=== PATIENT | male | born 1955 | race Caucasian/White ===

== ENCOUNTER 2017-10-18 11:42 | Emergency (ER) | payer OTHER | END 2017-10-18 12:35 | disposition home or self-care (01) | LOC: M ED 11:42 | DX: S46.211A Strain of muscle, fascia and tendon of other parts of biceps, right arm, initial encounter (principal); X50.0XXA Overexertion from strenuous movement or load, initial encounter; Y92.89 Other specified places as the place of occurrence of the external cause; F17.210 Nicotine dependence, cigarettes, uncomplicated | CPT/HCPCS: 99282 ==

== ENCOUNTER 2023-12-06 22:55 | Observation (INO) | payer MEDICARE, OTHER ==
[~2023-12-06] VITALS: Ht 182.9 cm; Wt 93.2 kg
[2023-12-06 23:21] LABS: BASO # 0.1 10^3/uL (0.0-0.2); BASO % 0.4 % (0.0-1.0); EOS # 0.5 10^3/uL (0.0-0.5); LYMPH # 5.1 10^3/uL (1.5-5.0); LYMPH % 41.4 % (24.0-44.0); MEAN CORPUSCULAR HEMOGLOBIN 31.3 pg (27.0-33.0); MEAN CORPUSCULAR VOLUME 92.1 fl (80.0-96.0); NEUTROPHILS # 5.7 10^3/uL (1.5-8.5); NEUTROPHILS % 45.9 % (36.0-66.0); PLATELET COUNT, AUTOMATED 209 10^3/uL (150-450); RED BLOOD COUNT 5.43 10^6/uL (4.30-6.10); WHITE BLOOD COUNT 12.4 10^3/uL (4.0-10.0)
[2023-12-06] MEDS: METOPROLOL 5 MG/5 ML VIAL IV SCH (23:27)
[2023-12-06 23:44] LABS: INR 0.94; PROTHROMBIN TIME 12.3 SECONDS (12.5-14.5)
[2023-12-06 23:45] LABS: LIPASE 49 U/L (12-53)
[2023-12-06 23:48] LABS: ALBUMIN 4.1 G/DL (3.2-5.2); ALKALINE PHOSPHATASE 110 U/L (46-116); ALT/SGPT 21 U/L (7.0-40); AST/SGOT 18 U/L (<34); BILIRUBIN,DIRECT < 0.1 MG/DL (<0.4); BILIRUBIN,TOTAL 0.3 MG/DL (0.3-1.2); BLOOD UREA NITROGEN 20 MG/DL (9-23); CALCIUM LEVEL 10.2 MG/DL (8.3-10.6); CARBON DIOXIDE LEVEL 30 MMOL/L (20-31); CHLORIDE LEVEL 107 MMOL/L (98-107); CK-MB VALUE MASS 1.3 NG/ML (<3.6); CPK CREATINE PHOSPHOKINASE 87 U/L (46-171); CREATININE FOR GFR 1.31 MG/DL (0.70-1.30); GLOMERULAR FILTRATION RATE 58.3 (>49); GLUCOSE, FASTING 112 MG/DL (74-106); MB/CK RELATIVE INDEX 1.49 (< OR =4); POTASSIUM SERUM 3.6 MMOL/L (3.5-5.1); SODIUM LEVEL 141 MMOL/L (136-145); TOTAL PROTEIN 7.1 G/DL (5.7-8.2)
[2023-12-07 00:11] VITALS: BP 170/86
[2023-12-07] MEDS: atenoloL 25 MG TAB PO ONE (00:11)
[2023-12-07 00:50] LABS: MB/CK RELATIVE INDEX 3.88 (< OR =4)
[2023-12-07] MEDS ORDERED: BIOT1000 PO (03:27)
[2023-12-07] MEDS ORDERED: D 10CAP PO (03:27)
[2023-12-07] MEDS ORDERED: [UNRECOGNIZED DRUG - CODE] SL (03:27)
[2023-12-07] MEDS ORDERED: OMEG10005 PO (03:27)
[2023-12-07] MEDS ORDERED: ONE1TAB2 PO (03:27)
[2023-12-07] MEDS ORDERED: GNP250TA9 PO (03:27)
[2023-12-07] MEDS ORDERED: HOME MED LIST COMPLETE! XX SCH (03:30)
[2023-12-07] MEDS ORDERED: MOM 30ML SUSPENSION UDC PO PRN (04:35)
[2023-12-07] MEDS ORDERED: MAALOX 30 ML SUSP *UDC PO PRN (04:35)
[2023-12-07] MEDS: LR 1,000 ML IV ONE (05:26)
[2023-12-07 06:55] LABS: HEMATOCRIT 48.5 % (42.0-52.0); HEMOGLOBIN 16.1 g/dl (13.5-17.5); MEAN CORPUSCULAR HEMOGLOBIN 30.6 pg (27.0-33.0); MEAN CORPUSCULAR HGB CONC 33.2 g/dl (32.0-36.5); PLATELET COUNT, AUTOMATED 209 10^3/uL (150-450); RED BLOOD COUNT 5.27 10^6/uL (4.30-6.10); WHITE BLOOD COUNT 11.2 10^3/uL (4.0-10.0)
[2023-12-07] MEDS: NICOTINE POLACRILEX 2 MG GUM PO PRN (07:26)
[2023-12-07 07:27] LABS: ALBUMIN 3.6 G/DL (3.2-5.2); ALKALINE PHOSPHATASE 91 U/L (46-116); ALT/SGPT 26 U/L (7.0-40); AST/SGOT 82 U/L (<34); BILIRUBIN,TOTAL 0.3 MG/DL (0.3-1.2); BLOOD UREA NITROGEN 19 MG/DL (9-23); CALCIUM LEVEL 10.4 MG/DL (8.3-10.6); CARBON DIOXIDE LEVEL 26 MMOL/L (20-31); CHLORIDE LEVEL 111 MMOL/L (98-107); CHOLESTEROL LEVEL 183 MG/DL (<200); CHOLESTEROL RISK RATIO 7.62 (<5); CREATININE FOR GFR 1.16 MG/DL (0.70-1.30); GLOMERULAR FILTRATION RATE > 60.0 (>49); GLUCOSE, FASTING 108 MG/DL (74-106); MAGNESIUM LEVEL 2.2 MG/DL (1.8-2.4); POTASSIUM SERUM 4.2 MMOL/L (3.5-5.1); SODIUM LEVEL 142 MMOL/L (136-145); TOTAL PROTEIN 6.4 G/DL (5.7-8.2); TRIGLYCERIDES LEVEL 240 MG/DL (<150)
[2023-12-07] MEDS ORDERED: ENOXAPARIN 40MG/0.4ML SYRINGE (J1650 PER 10MG) SC SCH (09:00)
[2023-12-07 09:28] LABS: HEMOGLOBIN 16.1 g/dl (13.5-17.5); MEAN CORPUSCULAR HEMOGLOBIN 30.5 pg (27.0-33.0); MEAN CORPUSCULAR HGB CONC 32.9 g/dl (32.0-36.5); MEAN CORPUSCULAR VOLUME 92.8 fl (80.0-96.0); PLATELET COUNT, AUTOMATED 202 10^3/uL (150-450); RED BLOOD COUNT 5.28 10^6/uL (4.30-6.10); WHITE BLOOD COUNT 11.9 10^3/uL (4.0-10.0)
[2023-12-07] MEDS: HEPARIN DRIP 25,000 UNITS in IV 1 EA IV SCH (09:33)
[2023-12-07] MEDS: HEPARIN SOD (PORCINE) 5000UNITS/ML 1ML VIAL/SYRINGE IV PRN (09:34)
[2023-12-07] MEDS: ACETAMINOPHEN 325 MG TAB PO PRN (09:35)
[2023-12-07] MEDS: HEPARIN SOD (PORCINE) 5000UNITS/ML 1ML VIAL/SYRINGE IV ONE (09:44)
[2023-12-07 09:45] LABS: HEMOGLOBIN A1c 5.5 % (4.0-6.0)
[2023-12-07] MEDS: ASPIRIN 325 MG TAB PO ONE (10:10)
[2023-12-07 11:34] VITALS: BP 156/78; TEMP 98.2; O2SAT 96
== END 2023-12-07 11:36 | disposition short-term general hospital (02) ==
LOC: M ED 22:55 → M ED INP 22:56
PROVIDERS: ADMIT Internal Medicine; ATTEND Internal Medicine
DX: I20.0 Unstable angina (principal); I21.4 Non-ST elevation (NSTEMI) myocardial infarction; R79.89 Other specified abnormal findings of blood chemistry; I25.5 Ischemic cardiomyopathy; I51.81 Takotsubo syndrome; F17.218 Nicotine dependence, cigarettes, with other nicotine-induced disorders; F32.A Depression, unspecified; Z79.899 Other long term (current) drug therapy
CPT/HCPCS: 36415; 71045; 80048; 80053; 80061; 80076; 82550; 82553; 83036; 83690; 83735; 84484; 85025; 85027; 85610; 85730; 93005; 93041; 93306; 96365; 96366; 96375; 96376; 99285; G0378

== ENCOUNTER 2023-12-22 05:06 | Emergency (ER) | payer MEDICARE, OTHER ==
[~2023-12-22] VITALS: Ht 182.9 cm; Wt 94.7 kg
[~2023-12-22 05:06] MED LIST: BIOT1000 PO; D 10CAP PO; GNP250TA9 PO; OMEG10005 PO; ONE1TAB2 PO; [UNRECOGNIZED DRUG - CODE] SL
[2023-12-22 05:58] LABS: BASO % 0.4 % (0.0-1.0); EOS # 0.2 10^3/uL (0.0-0.5); EOS % 2.4 % (0.0-3.0); HEMATOCRIT 44.7 % (42.0-52.0); HEMOGLOBIN 14.8 g/dl (13.5-17.5); LYMPH # 2.6 10^3/uL (1.5-5.0); LYMPH % 26.4 % (24.0-44.0); MEAN CORPUSCULAR HEMOGLOBIN 31.1 pg (27.0-33.0); MEAN CORPUSCULAR HGB CONC 33.1 g/dl (32.0-36.5); MEAN CORPUSCULAR VOLUME 93.9 fl (80.0-96.0); MONO # 1.1 10^3/uL (0.0-0.8); MONO % 10.8 % (2.0-8.0); NEUTROPHILS # 5.9 10^3/uL (1.5-8.5); NEUTROPHILS % 59.7 % (36.0-66.0); PLATELET COUNT, AUTOMATED 244 10^3/uL (150-450); RED BLOOD COUNT 4.76 10^6/uL (4.30-6.10); WHITE BLOOD COUNT 9.9 10^3/uL (4.0-10.0)
[2023-12-22 06:10] LABS: INR 1.13; PARTIAL THROMBOPLASTIN TIME 32.6 SECONDS (24.8-34.2); PROTHROMBIN TIME 14.2 SECONDS (12.5-14.5)
[2023-12-22 06:17] LABS: ALBUMIN 3.6 G/DL (3.2-5.2); ALKALINE PHOSPHATASE 89 U/L (46-116); ALT/SGPT 28 U/L (7.0-40); AST/SGOT 16 U/L (<34); BILIRUBIN,TOTAL 0.7 MG/DL (0.3-1.2); BLOOD UREA NITROGEN 17 MG/DL (9-23); CALCIUM LEVEL 9.9 MG/DL (8.3-10.6); CARBON DIOXIDE LEVEL 27 MMOL/L (20-31); CHLORIDE LEVEL 109 MMOL/L (98-107); CREATININE FOR GFR 1.11 MG/DL (0.70-1.30); GLOMERULAR FILTRATION RATE > 60.0 (>49); GLUCOSE, FASTING 99 MG/DL (74-106); POTASSIUM SERUM 3.9 MMOL/L (3.5-5.1); SODIUM LEVEL 140 MMOL/L (136-145); TOTAL PROTEIN 6.3 G/DL (5.7-8.2)
[2023-12-22] MEDS ORDERED: MAGN1TAB PO (08:38)
[2023-12-22] MEDS ORDERED: MAGN500T6 PO (08:38)
[2023-12-22] MEDS ORDERED: HOME MED LIST COMPLETE! XX SCH (08:40)
[2023-12-22] MEDS ORDERED: PROT1TAB2 PO (08:41)
[2023-12-22] MEDS ORDERED: ELIQ5TAB PO (08:48)
[2023-12-22] MEDS ORDERED: CLOP75TA2 PO (08:48)
[2023-12-22] MEDS ORDERED: ATOR80TA59 PO (08:48)
[2023-12-22] MEDS ORDERED: ASPI81TA26 PO (08:48)
[2023-12-22] MEDS: PANTOPRAZOLE 40MG VIAL IV ONE (08:55)
[2023-12-22 09:04] VITALS: BP 118/76; TEMP 98; O2SAT 98
== END 2023-12-22 09:06 | disposition home or self-care (01) ==
LOC: M ED 05:06
DX: K92.2 Gastrointestinal hemorrhage, unspecified (principal); T45.515A Adverse effect of anticoagulants, initial encounter; I48.91 Unspecified atrial fibrillation; I25.10 Atherosclerotic heart disease of native coronary artery without angina pectoris; I25.2 Old myocardial infarction; F41.9 Anxiety disorder, unspecified; Z95.5 Presence of coronary angioplasty implant and graft; F17.200 Nicotine dependence, unspecified, uncomplicated; Z79.899 Other long term (current) drug therapy; Z88.2 Allergy status to sulfonamides; Z88.8 Allergy status to other drugs, medicaments and biological substances
CPT/HCPCS: 80053; 85025; 85610; 85730; 86850; 86900; 86901; 93005; 93041; 94760; 96374; 99285; J2470

== ENCOUNTER 2023-12-23 14:12 | Emergency (ER) | payer MEDICARE, OTHER ==
[~2023-12-23] VITALS: Ht 182.9 cm; Wt 90.4 kg
[~2023-12-23 14:12] MED LIST changes: +ASPI81TA26 PO; +ATOR80TA59 PO; +CLOP75TA2 PO; +ELIQ5TAB PO; +MAGN1TAB PO; +MAGN500T6 PO; +PROT1TAB2 PO
[2023-12-23] MEDS: MAALOX 30 ML SUSP *UDC PO ONE (14:57)
[2023-12-23] MEDS: LIDOCAINE VISCOUS 2% SOLN 15ML UDC PO ONE (14:57)
[2023-12-23] MEDS: SUCRALFATE SUSP 1GM/10ML UD PO ONE (14:57)
[2023-12-23] MEDS: METOPROLOL 5 MG/5 ML VIAL IV SCH (14:58)
[2023-12-23] MEDS: METOPROLOL TART 25 MG TABLET PO ONE (14:58)
[2023-12-23 15:10] VITALS: BP 131/86
[2023-12-23 15:17] LABS: BASO % 0.4 % (0.0-1.0); EOS # 0.2 10^3/uL (0.0-0.5); EOS % 1.8 % (0.0-3.0); HEMATOCRIT 41.7 % (42.0-52.0); HEMOGLOBIN 14.1 g/dl (13.5-17.5); LYMPH # 3.1 10^3/uL (1.5-5.0); LYMPH % 29.3 % (24.0-44.0); MEAN CORPUSCULAR HEMOGLOBIN 30.8 pg (27.0-33.0); MEAN CORPUSCULAR HGB CONC 33.8 g/dl (32.0-36.5); MONO % 9.3 % (2.0-8.0); NEUTROPHILS # 6.2 10^3/uL (1.5-8.5); PLATELET COUNT, AUTOMATED 278 10^3/uL (150-450); RED BLOOD COUNT 4.58 10^6/uL (4.30-6.10); WHITE BLOOD COUNT 10.6 10^3/uL (4.0-10.0)
[2023-12-23 15:28] LABS: INR 1.11; PARTIAL THROMBOPLASTIN TIME 31.2 SECONDS (24.8-34.2); PROTHROMBIN TIME 14.6 SECONDS (12.5-14.5)
[2023-12-23 15:37] LABS: LIPASE 40 U/L (12-53)
[2023-12-23 15:38] LABS: CPK CREATINE PHOSPHOKINASE 100 U/L (46-171)
[2023-12-23 15:39] LABS: CK-MB VALUE MASS 2.1 NG/ML (<3.6)
[2023-12-23 15:40] LABS: ALBUMIN 4.1 G/DL (3.2-5.2); ALKALINE PHOSPHATASE 93 U/L (40-129); ALT/SGPT 28 U/L (7.0-40); AST/SGOT 17 U/L (<34); BILIRUBIN,DIRECT 0.3 MG/DL (<0.4); BILIRUBIN,TOTAL 0.8 MG/DL (0.3-1.2); BLOOD UREA NITROGEN 23 MG/DL (9-23); CALCIUM LEVEL 10.5 MG/DL (8.3-10.6); CARBON DIOXIDE LEVEL 26 MMOL/L (20-31); CHLORIDE LEVEL 108 MMOL/L (98-107); CREATININE FOR GFR 1.07 MG/DL (0.70-1.30); GLOMERULAR FILTRATION RATE > 60.0 (>49); GLUCOSE, FASTING 102 MG/DL (74-106); MAGNESIUM LEVEL 2.2 MG/DL (1.8-2.4); SODIUM LEVEL 139 MMOL/L (136-145); TOTAL PROTEIN 7.3 G/DL (5.7-8.2)
[2023-12-23] MEDS ORDERED: HOME MED LIST COMPLETE! XX SCH (15:45)
[2023-12-23 16:42] LABS: MB/CK RELATIVE INDEX 3.29 (< OR =4)
[2023-12-23] MEDS: HEPARIN SOD (PORCINE) 5000UNITS/ML 1ML VIAL/SYRINGE IV ONE (18:02)
[2023-12-23] MEDS ORDERED: ASPIRIN 81MG CHEW TABLET As Ordered ONE (18:02)
[2023-12-23] MEDS: HEPARIN DRIP 25,000 UNITS in IV 1 EA IV SCH (18:03)
[2023-12-23] MEDS: ASPIRIN 81MG CHEW TABLET PO STA (18:03)
[2023-12-23 18:15] VITALS: BP 121/72; TEMP 98.3; O2SAT 99
[2023-12-23 18:16] LABS: D-DIMER QUANT 0.49 ug/mL (<0.5)
[2023-12-24] MEDS ORDERED: ASPIRIN ENTERIC 325MG TAB PO SCH (09:00)
== END 2023-12-23 18:19 | disposition short-term general hospital (02) ==
LOC: M ED 14:12
DX: I21.4 Non-ST elevation (NSTEMI) myocardial infarction (principal); I48.91 Unspecified atrial fibrillation; I25.2 Old myocardial infarction; K21.9 Gastro-esophageal reflux disease without esophagitis; Z95.5 Presence of coronary angioplasty implant and graft; F17.200 Nicotine dependence, unspecified, uncomplicated; Z88.2 Allergy status to sulfonamides; Z88.8 Allergy status to other drugs, medicaments and biological substances

== ENCOUNTER → 2023-12-28 | Outpatient (REF) | payer OTHER ==
[2023-12-28 11:09] LABS: HEMOGLOBIN 12.1 g/dl (13.5-17.5); MEAN CORPUSCULAR HEMOGLOBIN 31.4 pg (27.0-33.0); MEAN CORPUSCULAR HGB CONC 33.6 g/dl (32.0-36.5); MEAN CORPUSCULAR VOLUME 93.5 fl (80.0-96.0); PLATELET COUNT, AUTOMATED 281 10^3/uL (150-450); RED BLOOD COUNT 3.85 10^6/uL (4.30-6.10)
== END ==
LOC: M LABWUC 10:15
PROVIDERS: ATTEND Emergency Medicine
DX: K92.2 Gastrointestinal hemorrhage, unspecified (principal)

== ENCOUNTER 2024-01-05 09:22 | Emergency (ER) | payer OTHER ==
[2024-01-05 10:14] LABS: BASO % 0.5 % (0.0-1.0); EOS # 0.1 10^3/uL (0.0-0.5); EOS % 1.3 % (0.0-3.0); HEMATOCRIT 39.3 % (42.0-52.0); LYMPH # 1.7 10^3/uL (1.5-5.0); LYMPH % 22.4 % (24.0-44.0); MEAN CORPUSCULAR HEMOGLOBIN 31.1 pg (27.0-33.0); MEAN CORPUSCULAR HGB CONC 33.1 g/dl (32.0-36.5); MONO # 0.7 10^3/uL (0.0-0.8); MONO % 9.6 % (2.0-8.0); NEUTROPHILS # 4.9 10^3/uL (1.5-8.5); NEUTROPHILS % 65.9 % (36.0-66.0); PLATELET COUNT, AUTOMATED 215 10^3/uL (150-450); RED BLOOD COUNT 4.18 10^6/uL (4.30-6.10); WHITE BLOOD COUNT 7.5 10^3/uL (4.0-10.0)
[2024-01-05 10:28] LABS: INR 1.28; PARTIAL THROMBOPLASTIN TIME 30.5 SECONDS (24.8-34.2); PROTHROMBIN TIME 16.3 SECONDS (12.5-14.5)
[2024-01-05 10:35] LABS: LIPASE 30 U/L (12-53)
[2024-01-05 10:38] LABS: ALBUMIN 3.8 G/DL (3.2-5.2); ALKALINE PHOSPHATASE 94 U/L (40-129); ALT/SGPT 25 U/L (7.0-40); AST/SGOT 20 U/L (<34); BILIRUBIN,DIRECT 0.3 MG/DL (<0.4); BILIRUBIN,TOTAL 0.8 MG/DL (0.3-1.2); BLOOD UREA NITROGEN 9 MG/DL (9-23); CALCIUM LEVEL 10.1 MG/DL (8.3-10.6); CARBON DIOXIDE LEVEL 24 MMOL/L (20-31); CHLORIDE LEVEL 110 MMOL/L (98-107); CK-MB VALUE MASS 1.1 NG/ML (<3.6); CREATININE FOR GFR 1.15 MG/DL (0.70-1.30); GLOMERULAR FILTRATION RATE > 60.0 (>49); GLUCOSE, FASTING 99 MG/DL (74-106); SODIUM LEVEL 140 MMOL/L (136-145); TOTAL PROTEIN 6.8 G/DL (5.7-8.2)
[2024-01-05 10:41] LABS: FREE T4 1.29 NG/DL (0.89-1.76)
[2024-01-05 10:42] LABS: THYROID STIMULATING HORMONE 1.199 uIU/ML (0.55-4.78)
[2024-01-05 10:45] LABS: CPK CREATINE PHOSPHOKINASE 100 U/L (46-171)
[2024-01-05 11:52] LABS: CK-MB VALUE MASS 1.3 NG/ML (<3.6)
[2024-01-05 11:54] LABS: MB/CK RELATIVE INDEX 1.51 (< OR =4)
[2024-01-05 14:21] VITALS: BP 144/77
[2024-01-05 14:22] VITALS: TEMP 97.9; O2SAT 98
== END 2024-01-05 14:41 | disposition home or self-care (01) ==
LOC: M ED 09:22
DX: R07.9 Chest pain, unspecified (principal); Z98.61 Coronary angioplasty status; I25.10 Atherosclerotic heart disease of native coronary artery without angina pectoris; F17.200 Nicotine dependence, unspecified, uncomplicated; Z79.01 Long term (current) use of anticoagulants; Z79.899 Other long term (current) drug therapy; Z88.2 Allergy status to sulfonamides; Z88.8 Allergy status to other drugs, medicaments and biological substances

== ENCOUNTER → 2024-03-30 | Outpatient (CLI) | payer OTHER ==
[~2024-03-30] MED LIST changes: +E-Z-GAS II EFFERVESCENT PACKET (SODIUM BICARB./CITRIC ACID/SIMETHICONE) As Ordered ONE; +E-Z-HD 98% w/w 340GM SUSP BTL As Ordered ONE; +E-Z-PAQUE 96% w/w SUSP 176GM BTL As Ordered ONE
== END ==
LOC: M RAD 03-14 07:26
PROVIDERS: ATTEND Internal Medicine
DX: R13.10 Dysphagia, unspecified (principal); K21.9 Gastro-esophageal reflux disease without esophagitis

== ENCOUNTER → 2024-04-19 | Outpatient (CLI) | payer OTHER ==
[~2024-04-19] MED LIST changes: -E-Z-GAS II EFFERVESCENT PACKET (SODIUM BICARB./CITRIC ACID/SIMETHICONE) As Ordered ONE; -E-Z-HD 98% w/w 340GM SUSP BTL As Ordered ONE; -E-Z-PAQUE 96% w/w SUSP 176GM BTL As Ordered ONE
== END ==
LOC: M RAD 15:19
PROVIDERS: ATTEND Internal Medicine
DX: Z12.2 Encounter for screening for malignant neoplasm of respiratory organs (principal); F17.210 Nicotine dependence, cigarettes, uncomplicated; J98.11 Atelectasis; R91.8 Other nonspecific abnormal finding of lung field; J43.9 Emphysema, unspecified; I70.0 Atherosclerosis of aorta; I25.10 Atherosclerotic heart disease of native coronary artery without angina pectoris

== ENCOUNTER → 2024-05-08 | Outpatient (REF) | payer OTHER ==
[2024-05-11 17:48] LABS: RUBEOLA IgG ANTIBODY > 300.00 AU/mL (>16.49)
== END ==
LOC: M LAB REF 12:18
PROVIDERS: ATTEND Internal Medicine
DX: Z11.59 Encounter for screening for other viral diseases (principal)

== ENCOUNTER → 2024-05-31 | Outpatient (CLI) | payer OTHER | LOC: M SLEEP 20:00 | PROVIDERS: ATTEND Physician Assistant | DX: G47.31 Primary central sleep apnea (principal); I48.3 Typical atrial flutter; I21.4 Non-ST elevation (NSTEMI) myocardial infarction ==

== ENCOUNTER → 2024-07-07 | Outpatient (CLI) | payer OTHER ==
[~2024-07-07] MED LIST changes: -BIOT1000 PO; +BIOT10002 PO
== END ==
LOC: M SLEEP 20:00
PROVIDERS: ATTEND Physician Assistant
DX: G47.33 Obstructive sleep apnea (adult) (pediatric) (principal)

== ENCOUNTER → 2024-10-17 | Outpatient (CLI) | payer OTHER | LOC: M RAD 16:45 | PROVIDERS: ATTEND Internal Medicine | DX: R91.1 Solitary pulmonary nodule (principal); R91.8 Other nonspecific abnormal finding of lung field ==